=== PATIENT | female | born 1965 | race Caucasian/White ===

== ENCOUNTER 2019-12-18 10:30 | Inpatient (IN) | payer OTHER ==
--- NOTE | 2019-12-01 19:08 | NUR ---
BEDSIDE SHIFT REPORT GIVEN BY DAY RN. PT IS ALERT AND ORIENTED X3. RESPIRATIONS ARE EVEN AND UNLABORED. IV NOT WORKING WILL RESTART. PT REPORTS STOOLS ARE SOFT FORMED. ABDOMEN SOFT. BOWEL SOUNDS PRESENT.PT RESTING IN BED WATCHING TV. NO DISTRESS NOTED. AFEBRILE . PT HAS INTERMITENT COUGH- NONPRODUCTIVE. CALL LIGHT WITHIN REACH. BED LOCKED AND IN LOW POSITION .
[~2019-12-18] VITALS: Ht 167.6 cm; Wt 97.3 kg
--- OUTSIDE RECORDS SUMMARY | 2019-12-18 10:31 | XMS REPORT ---
Author Author [facility] Address Unknown Phone Unavailable Care Team Providers Care Wire Machine Operator Name Role Phone Unavailable Unavailable Payers Payer Name Policy Type Policy Number Effective Date Expiration Date Problems This patient has no known problems. Allergies, Adverse Reactions, Alerts This patient has no known allergies or adverse reactions. Medications This patient has no known medications. Results Test Description Test Time Test Comments Text Results Atomic Results Result Comments - XR KNEE 3 V BI 2019-12-02 15:26:00 FAX: Mekhi Sanabria MD [phone] [place]: St: REG FAX: Bridgette Engle [phone] Name: SUZETTE DEL CASTILLO [facility] : 1965 Age/S: 54/F [address] Unit #: [id number] Loc: [place] [address] Phys: Mekhi Villanueva MD Acct: [id number] Dis Date: Status: REG RCR PHONE #: [phone] Exam Date: 12/02/2019 1515 FAX #: Reason: pain EXAMS: CPT CODE: [id number] XR KNEE 3 [place] [address] HISTORY: Pain. COMPARISON: None available. 3 views of the right and left knee: Location: [facility]. No acute fracture or dislocation. Mild tricompartment joint space narrowing especially in the medial compartments bilaterally. No osteochondral lesions of the condyles. Articular surfaces remain well marginated. Mineralization and the soft tissues are normal. No joint fluid on either side. Quadriceps enthesophyte on the right. IMPRESSION: No acute fracture or dislocation. Mild tricompartment joint space narrowing especially in the medial compartments bilaterally. No joint fluid on either side. at 1526 Reported and signed by: Danish Worley M.D. CC: Mekhi Villanueva MD; Bridgette Ying MD Technologist: Grant ELIZABETH(R) Trnscrd Date/Time/By: 12/02/2019 (1526) : By: [email or web address] Orig Print D/T: S: 12/02/2019 (3592) PAGE 1 Signed Report
--- OUTSIDE RECORDS SUMMARY | 2019-12-18 10:31 | XMS REPORT | Encounter Summary ---
Author Organization Unknown Address [address] [place] [address] Phone [phone] Care Team Providers Care Nurse First Assist Name Role Phone Dr. Bridgette Ying 3 [phone] Reason for Visit hyperlipidemia; Bilateral knee pain/problem Instructions 1. Pain in left knee orthopedic referral - Please contact patient to schedule. Thank you! XR, knee, 3 view - Please contact patient to schedule. Thank you! naproxen 500 mg tablet 2. Intermittent palpitations cardiology referral - Please contact patient to schedule. Thank you! atenolol 25 mg tablet TSH, serum or plasma CBC w/ auto diff 3. Hyperlipidemia atorvastatin 10 mg tablet high cholesterol: care instructions lipid panel, serum CMP, serum or plasma 4. Body mass index 30+ - obesity body mass index: care instructions learning about healthy weight 5. Screening for malignant neoplasm of breast MAMMO, screening, digital, bilateral - Please contact patient to schedule. Thank you! 6. Gastroesophageal reflux disease 7. Migraine 8. Generalized anxiety disorder 9. Environmental allergy Discussion Note: None recorded. Plan of Care Reminders Provider Appointments Return to Office on or around 01/22/2020 Bridgette Ying MD Lab Lipid Panel, Serum 10/24/2019 [facility] - Laboratory CMP, Serum or Plasma 10/24/2019 [facility] - Laboratory TSH, Serum or Plasma 10/24/2019 [facility] - Laboratory CBC W/ Auto Diff 10/24/2019 [facility] - Laboratory Referral Cardiology Referral 10/24/2019 Lili Lan Jr DO Orthopedic Referral 10/24/2019 Wallace Dixon MD Procedures None recorded. Surgeries None recorded. Imaging MAMMO, Screening, Digital, Bilateral 10/24/2019 [facility] XR, Knee, 3 View 10/24/2019 [facility] Medications Name Start Date atenolol 25 mg tablet Take 1 tablet twice a day by oral route for 91 days. atorvastatin 10 mg tablet Take 1 tablet every day by oral route at bedtime for 90 days. Claritin 10 mg tablet Take 1 tablet every day by oral route. diazepam 5 mg tablet Take 1 tablet twice a day by oral route as needed. ibuprofen as needed naproxen 500 mg tablet Take 1 tablet twice a day by oral route as needed. take with food Prilosec OTC 20 mg tablet,delayed release Take 1 tablet every day by oral route. Tylenol as needed Medications Administered None recorded. Vitals Height Weight BMI Blood Pressure 5 ft 5.5 in 201 lbs 32.9 kg/m2 134/84 mm[Hg] Results Lab Results None recorded. Allergies Code Code System Name Reaction Severity Status Onset Sulfa (Sulfonamide Antibiotics) Hives Severe Active Problems Name Status Onset Date Source Hyperlipidemia Active 10/24/2019 Migraine Active 10/24/2019 Generalized Anxiety Disorder Active 10/25/2019 Gastroesophageal Reflux Disease Active 10/25/2019 Intermittent Palpitations Active 10/25/2019 Environmental Allergy Active 10/25/2019 Pain in Left Knee Active 10/25/2019 Procedures Date Name Performed by 10/01/1999 Hysterectomy (Partial) Information not available 10/01/1991 Tubal Ligation Information not available 10/01/1990 Caesarean Section Information not available 10/01/1989 Removal of Ectopic Fetus Information not available 10/01/1973 Appendectomy Information not available 10/24/2019 MAMMO, Screening, Digital, Bilateral [facility] [address], [place] [id number] (Work Place) 10/24/2019 XR, Knee, 3 View [facility] [address] [place] [address] (Work Place) Vaccine List None recorded. Social History Tobacco Smoking Status Never Smoker Past Encounters 10/24/2019 Pain in Left Knee; Intermittent Palpitations; Hyperlipidemia; Body Mass Index 30+ - Obesity; Screening for Malignant Neoplasm of Breast; Gastroesophageal Reflux Disease; Migraine; Generalized Anxiety Disorder; Environmental Allergy Bridgette Ying MD: [address] [place] [address], Ph. History of Present Illness Note:54yo female presents to become established in our office. New to [facility]. Regular PCP is no longer in her insurance network. Here today for evaluation of bilateral knee pain L>R since last July. Describes intermittent sharp, stabbing pain in left knee which can occur at rest or with activity. 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 Feels like both knees might buckle & amp; give way. No falls, but feels like knees are unstable.</div><div>Also needs medication refills of atorvastatin & atenolol.</div><div>PMHx:</div><div> Hyperlipidemia - on atorvastatin 10mg qhs since Jun 2019. Watching low choleste rol diet.</div><div>Premature heartbeats - was seen by geriatric nurse in past. Feels irregular heartbeat everyday. Has been on atenolol 25mg bid since 2007. Would like cardiology referral.</div><div>GERD -on daily OTC Prilosec</div><div> Vertigo/anxiety -has used diazepam in past.</div><div>Environmental allergies - followed by ENT, Dr Adriel Chavez for multiple allergies - was on allergy shots in past, now on Claritin. Mold, oak trees, dirt, dust, mesquite.</div><div >Migraines - was on topamax in past. Was seen by neurologist in [place]. Has not had migraine since January 2019 when she had Daith ear piercing on both ears.</div>< div>Last WWE/Pap in May 2019 - normal through [facility].</div><div>Last mammo in 2017 at [facility]</div> Review of Systems:ROS as noted in the HPI Review of Systems Comprehensive General Adult ROS Reported By: Patient Constitutional: Constitutional: no fever Eyes: Eyes: no vision change Cardiovascular: Cardiovascular: no chest pain, no known heart murmur, palpitations Respiratory: Respiratory: no cough, no wheezing, no shortness of breath Gastrointestinal: Gastrointestinal: no abdominal pain, dyspepsia, GERD Musculoskeletal: Musculoskeletal: arthralgias/joint pain Neurologic: Neurologic: no loss of consciousness, migraines Psychiatric: Psych: no depression, no alcohol abuse, no suicidal thoughts, anxiety Physical Exam General Adult Exam (Female) Reported By: Patient Constitutional: General Appearance: healthy-appearing, well-nourished, well-developed. Level of Distress: NAD. Ambulation: ambulating normally Psychiatric: Mental Status: active and alert, normal mood, normal affect Eyes: Lids and Conjunctivae: non-injected. Pupils: PERRLA. EOM: EOMI. Sclerae: non-icteric ENMT: Hearing: no hearing loss. Oropharynx: moist mucous membranes Neck: Thyroid: non-tender, no nodules Lungs: Respiratory effort: no dyspnea. Auscultation: breath sounds normal, good air movement, no wheezing, no rales/crackles Cardiovascular: Heart Auscultation: RRR, normal S1, normal S2, no murmurs. Neck vessels: no carotid bruits Abdomen: Bowel Sounds: normal. Inspection and Palpation: soft Musculoskeletal:: Joints, Bones, and Muscles: normal movement of all extremities, tenderness. Extremities: no edema Neurologic: Gait and Station: normal gait Skin: Inspection and palpation: no rash
[2019-12-18] MEDS ORDERED: ONDANSETRON HCL INJ 2MG/ML 2ML 2 MG/ML VIAL IV STA ×2 (10:41→13:50)
[2019-12-18] MEDS ORDERED: SODIUM CHLORIDE 0.9% 1000ML 1,000 ML IV STA (10:41)
[2019-12-18 11:09] LABS: BASOPHILS % 0.3 % (0.0-1.0); HEMATOCRIT 41.7 % (34.2-44.1); HEMOGLOBIN 13.7 g/dL (12.0-16.0); LYMPHOCYTES % 6.4 % (18.0-39.1); MEAN CORPUSCULAR HEMOGLOBIN 29.1 pg (28-32); MEAN CORPUSCULAR HGB CONC 32.9 g/dL (31-35); MEAN CORPUSCULAR VOLUME 88.5 fL (81-99); MONOCYTES # (AUTO) 0.5 (0.2-0.8); MONOCYTES % 3.4 % (4.4-11.3); NEUTROPHILS # (AUTO) 13.8 (2.1-6.9); NEUTROPHILS % 89.5 % (38.7-80.0); PLATELET COUNT 372 x10e3/uL (140-360); RED BLOOD COUNT 4.71 x10e6/uL (3.6-5.1); RED CELL DISTRIBUTION WIDTH 12.6 % (11.7-14.4)
[2019-12-18 11:18] LABS: STREPTOCOCCUS GRP A ANTIGEN NEGATIVE (NEGATIVE)
[2019-12-18 11:32] LABS: ALANINE AMINOTRANSFERASE 20 IU/L (0-55); ALBUMIN 3.9 g/dL (3.5-5.0); ALKALINE PHOSPHATASE 75 IU/L (40-150); BLOOD UREA NITROGEN 18 mg/dL (7-26); BUN/CREATININE RATIO 23 (6-25); CARBON DIOXIDE 26 mmol/L (22-29); CHLORIDE 101 mmol/L (98-107); CREATINE KINASE 58 IU/L (29-168); CREATININE, SERUM 0.79 mg/dL (0.57-1.11); EST GLOMERULAR FILTRATION RATE > 60 ML/MIN (60-); GLUCOSE 149 mg/dL (74-118); SODIUM 139 mmol/L (136-145)
[2019-12-18 11:43] LABS: INFLUENZAE A&B ANTIGEN (RAPID) NEGATIVE (NEGATIVE)
[2019-12-18 12:01] LABS: CLARITY,URINE CLOUDY (CLEAR); COLOR,URINE YELLOW (YELLOW); LEUKOCYTE ESTERASE ,URINE NEGATIVE (NEGATIVE); NITRITE,URINE NEGATIVE (NEGATIVE); PROTEIN,URINE DIPSTICK 2+ (NEGATIVE)
[2019-12-18 12:02] LABS: BILIRUBIN,URINE NEGATIVE (NEGATIVE); KETONES,URINE NEGATIVE (NEGATIVE); URINE UROBILINOGEN 0.2 mg/dL (0.2 - 1)
[2019-12-18 12:06] LABS: BACTERIA,URINE MANY /HPF; EPITHELIAL CELLS,URINE FEW /LPF
[2019-12-18] MEDS ORDERED: DIATRIZOATE MEGL/DIATRIZOA SOD 30 ML BTL PO ONE (12:12)
[2019-12-18] MEDS ORDERED: MORPHINE SULFATE INJ 4 MG/ML INJ 1ML IV STA (13:37)
--- NOTE | 2019-12-18 13:42 | Diagnostic Imaging Report ---
EXAM: CT Chest, Abdomen and Pelvis WITH intravenous contrast INDICATION: Elevated d-dimer, chest pain, abdominal pain, rectal bleeding COMPARISON: None. TECHNIQUE: The chest, abdomen and pelvis were scanned utilizing a multidetector helical scanner from the thoracic inlet to the pubic symphysis following administration of IV contrast. Coronal and sagittal reformations were obtained. PE Protocol was utilized to scan the thorax. Abdomen/pelvis scan was performed during portal venous phase. IV CONTRAST: 100cc Isovue 370 ORAL CONTRAST: Gastrografin COMPLICATIONS: None RADIATION DOSE: Total DLP: 1340 mGy*cm Dose modulation, iterative reconstruction, and/or weight based adjustment of the mA/kV was utilized to reduce the radiation dose to as low as reasonably achievable. FINDINGS: PULMONARY ARTERIES: No pulmonary embolism. The main pulmonary artery is not enlarged and measures up to 2.7 cm. No right heart strain. LINES/ TUBES: None. LUNGS AND AIRWAYS: The central airways are patent. No focal consolidation. No pulmonary edema. No suspicious pulmonary nodule. PLEURA: The pleural spaces are clear. HEART AND MEDIASTINUM: The thyroid gland is normal. No mediastinal, hilar or axillary lymphadenopathy. The heart is normal in size.. There is no pericardial effusion. HEPATOBILIARY: No focal hepatic lesions. No biliary ductal dilatation. The gallbladder appears unremarkable. SPLEEN: No splenomegaly. PANCREAS: No focal masses or ductal dilatation. ADRENALS: 1.5 cm left adrenal nodule and 1.2 cm right adrenal nodule, both of which are indeterminate based on density measurement (50HU). KIDNEYS/URETERS: No hydronephrosis, stones, or solid mass lesions. PELVIC ORGANS/BLADDER: Status post hysterectomy. PERITONEUM / RETROPERITONEUM: No free air or fluid. LYMPH NODES: No lymphadenopathy. VESSELS: Minimal atherosclerotic calcifications of the nonaneurysmal abdominal aorta and major branches. GI TRACT: Wall thickening and mild pericolonic fat stranding involving a segment of mid to distal transverse colon. No associated diverticulosis. BONES AND SOFT TISSUES: No acute osseous injury. No suspicious lytic or blastic lesions. IMPRESSION: No pulmonary embolism. Mid to distal transverse colon colitis. 1.5 cm left adrenal nodule and 1.2 cm right adrenal nodule are both indeterminate based on density but most likely represent benign adenomas. Follow-up adrenal mass protocol CT in 12 months is recommended to assess for stability. If the nodules are stable at that time, no further imaging follow-up is necessary. Signed by: Marisa Villegas MD on 12/18/2019 1:38 PM
[2019-12-18] MEDS ORDERED: MORPHINE SULFATE 2 MG/ML SYR 1ML IV PRN (14:30)
[2019-12-18] MEDS ORDERED: ATENOLOL25 MG PO (14:44)
[2019-12-18] MEDS ORDERED: ATORVASTATIN CA10 MG PO (14:44)
[2019-12-18] MEDS ORDERED: CIPROFLOXACIN 400 MG/D5W 200ML 200 ML IV SCH (15:00)
[2019-12-18] MEDS ORDERED: IOPAMIDOL 370 MG/ML 200 ML INFUS..BTL INJ ONE (15:22)
[2019-12-18] MEDS ORDERED: SODIUM CHLORIDE 0.9% 50ML 50 ML ONE (15:22)
--- NOTE | 2019-12-18 15:24 | NUR ---
RECEIVED REPORT FROM STRUCTURAL STEEL EQUIPMENT ERECTOR, PT COMING TO ROOM 211. AWAITING PT'S ARRIVAL.
[2019-12-18 15:36] VITALS: BP 170/80
--- NOTE | 2019-12-18 15:36 | NUR ---
PT ARRIVED TO ROOM 211 VIA STRETCHER. PT AWAKE, ALERT, NO SIGNS OF DISTRESS. IV INTACT AND PATENT. PT TRANSFERRED EASILY FROM STRETCHER TO BED WITH MINIMAL ASSISTANCE.
[2019-12-18 16:07] VITALS: BP 170/80
[2019-12-18 17:49] VITALS: BP 170/80
[2019-12-18] MEDS ORDERED: LORATADINE10 MG PO (18:02)
[2019-12-18] MEDS ORDERED: OMEPRAZOLE40 MG PO (18:02)
[2019-12-18] MEDS: SODIUM CHLORIDE 0.9% 1000ML 1,000 ML IV SCH (18:05)
[2019-12-18] MEDS: METRONIDAZOLE 500MG/NS 100ML 100 ML IV SCH (18:05)
--- NOTE | 2019-12-18 18:17 | NUR ---
PT'S BP NOTED; PT TOOK ONE OF HER ATENOLOL FROM HOME. AWAITING DR. CASTELLON TO SEE PATIENT FOR NEW ADMISSION TO RESTART HOME MEDS.
--- NOTE | 2019-12-18 19:05 | NUR ---
Bedside nursing report completed with morning nurse. Pt alert to name, lying in bed HOB 60 degrees. c/o lower abdominal pain that comes and goes. Call light within reach. Bed low and locked.
[2019-12-18] MEDS: MORPHINE SULFATE INJ 4 MG/ML INJ 1ML IV PRN (19:35)
[2019-12-18 20:00] VITALS: BP 143/71
[2019-12-18] MEDS: ONDANSETRON HCL INJ 2MG/ML 2ML 2 MG/ML VIAL IV PRN (20:45)
[2019-12-18] MEDS: CIPROFLOXACIN 400 MG/D5W 200ML 200 ML IV SCH (21:00)
[2019-12-18] MEDS ORDERED: BISACODYL 5 MG TAB EC PO ONE ×3 (21:45→22:45)
[2019-12-18 22:54] VITALS: BP 143/71
[2019-12-18] MEDS ORDERED: BISACODYL 5 MG TAB EC PO SCH (23:15)
[2019-12-18] MEDS: CITRATE OF MAGNESIA 300ML BOTTLE PO SCH (23:30)
[2019-12-18] MEDS ORDERED: CITRATE OF MAGNESIA 300ML BOTTLE PO SCH (23:30)
[2019-12-19] VITALS (9 sets, daily range): BP systolic 115–170; BP diastolic 63–90
[2019-12-19] MEDS: PANTOPRAZOLE 40 MG 10ML VIAL IV SCH ×3 (00:38→22:00)
[2019-12-19] MEDS: SODIUM CHLORIDE 0.9% 1000ML 1,000 ML IV SCH ×6 (03:30→22:19)
[2019-12-19] MEDS: ONDANSETRON HCL INJ 2MG/ML 2ML 2 MG/ML VIAL IV PRN ×3 (04:25→18:25)
[2019-12-19] MEDS: MORPHINE SULFATE INJ 4 MG/ML INJ 1ML IV PRN ×3 (04:25→18:24)
[2019-12-19] MEDS: METRONIDAZOLE 500MG/NS 100ML 100 ML IV SCH ×2 (04:39→15:43)
[2019-12-19] MEDS: CITRATE OF MAGNESIA 300ML BOTTLE PO SCH (04:40)
[2019-12-19 05:56] LABS: BASOPHILS % 0.2 % (0.0-1.0); EOSINOPHILS % 0.1 % (0.0-6.0); HEMATOCRIT 38.8 % (34.2-44.1); HEMOGLOBIN 12.7 g/dL (12.0-16.0); LYMPHOCYTES # (AUTO) 1.2 (1.0-3.2); LYMPHOCYTES % 6.8 % (18.0-39.1); MEAN CORPUSCULAR HEMOGLOBIN 29.3 pg (28-32); MEAN CORPUSCULAR HGB CONC 32.7 g/dL (31-35); MEAN CORPUSCULAR VOLUME 89.6 fL (81-99); MONOCYTES % 5.5 % (4.4-11.3); NEUTROPHILS # (AUTO) 15.6 (2.1-6.9); NEUTROPHILS % 86.2 % (38.7-80.0); PLATELET COUNT 331 x10e3/uL (140-360); RED BLOOD COUNT 4.33 x10e6/uL (3.6-5.1); RED CELL DISTRIBUTION WIDTH 12.8 % (11.7-14.4)
[2019-12-19 06:15] LABS: ALANINE AMINOTRANSFERASE 17 IU/L (0-55); ALBUMIN 3.5 g/dL (3.5-5.0); ALKALINE PHOSPHATASE 67 IU/L (40-150); ANION GAP 10.2 mmol/L (8-16); BLOOD UREA NITROGEN 8 mg/dL (7-26); BUN/CREATININE RATIO 11 (6-25); CALCIUM 9.1 mg/dL (8.4-10.2); CARBON DIOXIDE 27 mmol/L (22-29); CHLORIDE 103 mmol/L (98-107); EST GLOMERULAR FILTRATION RATE > 60 ML/MIN (60-); GLUCOSE 146 mg/dL (74-118); POTASSIUM 4.2 mmol/L (3.5-5.1); SODIUM 136 mmol/L (136-145)
--- NOTE | 2019-12-19 06:55 | NUR ---
Completed rounds with morning nurse. Pt lying in bed HOB 60 degrees. No acute distress noted.
--- NOTE | 2019-12-19 07:05 | NUR ---
RCD PT AT BED PT IS ALERT AND ORIENTED PT RESTING ON BED IV PATENT BY SALINE FLUSH PT NPO FOR PROCEDURE BED LOW AND LOCKED CALL LIGHT IN REACH
[2019-12-19] MEDS: CIPROFLOXACIN 400 MG/D5W 200ML 200 ML IV SCH ×2 (08:40→22:00)
[2019-12-19] MEDS ORDERED: GLUCAGON FOR INJ 1 MG VIAL ONE (11:11)
[2019-12-19] MEDS ORDERED: PROPOFOL IV EMULSION 10 MG/ML 50 ML VIAL ONE (11:11)
[2019-12-19] MEDS ORDERED: MIDAZOLAM HCL 2 MG/2 ML VIAL ONE (11:45)
--- NOTE | 2019-12-19 16:05 | NUR ---
PT WENT TO PROCEDURE IN SAFE CONDITION
--- NOTE | 2019-12-19 17:30 | NUR ---
PT BACK AFTER PROCEDURE PT IS ALERT AND ORIENTED VITALS CHECKED PT RESTING ON BED BED LOW AND LOCKED CALL LIGHT IN REACH
[2019-12-19] MEDS: VANCOMYCIN 250MG/5ML ORAL SOLN PO SCH ×2 (18:00→23:55)
--- NOTE | 2019-12-19 18:43 | NUR ---
PT RESTING ON BED BED SIDE REPORT GIVEN TO ONCOMING NURSE
--- NOTE | 2019-12-19 18:50 | NUR ---
BS ROUNDS COMPLETED WITH MORNING NURSE. PT ALERT AND ORIENTED TO NAME, LYING IN BED HOB 45 DEGREES. C/O MILD ABD PAIN, MEDICATED PREVIOUSLY. CALL LIGHT WITHIN REACH. WILL CONTINUE TO MONITOR.
[2019-12-20] VITALS (8 sets, daily range): BP systolic 91–133; BP diastolic 53–64
[2019-12-20] MEDS ORDERED: ACETAMINOPHEN325 M1 PO (00:32)
[2019-12-20] MEDS: ACETAMINOPHEN 325 MG TAB PO PRN (01:00)
[2019-12-20] MEDS: METRONIDAZOLE 500MG/NS 100ML 100 ML IV SCH ×2 (04:00→15:54)
[2019-12-20] MEDS: VANCOMYCIN 250MG/5ML ORAL SOLN PO SCH ×4 (06:00→23:45)
[2019-12-20 06:18] LABS: HEMATOCRIT 33.3 % (34.2-44.1); HEMOGLOBIN 10.6 g/dL (12.0-16.0); MEAN CORPUSCULAR HEMOGLOBIN 29.1 pg (28-32); MEAN CORPUSCULAR HGB CONC 31.8 g/dL (31-35); MEAN CORPUSCULAR VOLUME 91.5 fL (81-99); PLATELET COUNT 270 x10e3/uL (140-360); RED BLOOD COUNT 3.64 x10e6/uL (3.6-5.1); RED CELL DISTRIBUTION WIDTH 12.9 % (11.7-14.4)
[2019-12-20] MEDS: SODIUM CHLORIDE 0.9% 1000ML 1,000 ML IV SCH ×5 (06:19→22:19)
--- NOTE | 2019-12-20 07:10 | NUR ---
RCD PT AT BED PT IS ALERT AND ORIENTED PT RESTING ON BED IV PATENT BY SALINE FLUSH GETTING O2 3L BY NC BED LOW AND LOCKED CALL LIGHT IN REACH
[2019-12-20] MEDS: PANTOPRAZOLE SOD 40 MG TABEC PO SCH (07:30)
[2019-12-20] MEDS: ATORVASTATIN 10 MG TAB PO SCH (09:00)
[2019-12-20] MEDS: LORATADINE 10 MG TAB PO SCH (09:00)
[2019-12-20] MEDS: CIPROFLOXACIN 400 MG/D5W 200ML 200 ML IV SCH ×2 (09:00→21:16)
[2019-12-20] MEDS ORDERED: NON-FORMULARY MEDICATION (Atenolol 25 MG) PO SCH (09:00)
[2019-12-20] MEDS ORDERED: PANTOPRAZOLE SOD 40 MG TABEC PO SCH (09:00)
[2019-12-20] MEDS: ATENOLOL 50 MG TAB PO SCH ×2 (09:00→17:00)
[2019-12-20] MEDS: ONDANSETRON HCL INJ 2MG/ML 2ML 2 MG/ML VIAL IV PRN ×3 (09:25→22:49)
[2019-12-20] MEDS: MORPHINE SULFATE INJ 4 MG/ML INJ 1ML IV PRN ×3 (09:25→22:49)
--- NOTE | 2019-12-20 12:41 | Consultation ---
DATE OF CONSULTATION: 12/19/2019 REASON FOR CONSULTATION: Abdominal pain. HISTORY OF PRESENT ILLNESS: This is a very pleasant 54-year-old white female, comes to the emergency room with abdominal pain. She also has diarrhea. The patient is going for colonoscopy. The patient just received a dose of morphine apparently. So there is no family, she would like me to get more information. When she first came, her white count was 15.4, went up to 18.03, hemoglobin 13, and her platelet of 372. Sodium 139, potassium of 4.0, and creatinine 0.79. Liver enzyme normal limit. MEDICATION LIST: She is currently on metronidazole and Cipro. Her CT of abdomen and chest was done. No pulmonary embolism and showed colitis. PHYSICAL EXAMINATION: GENERAL: She is currently alert and oriented. Does not seem to be in acute distress. VITAL SIGNS: Stable, currently afebrile. Temperature is 96.3, heart rate 80. HEENT: She is not icteric. NECK: Supple. CHEST: Clear. HEART: S1 and S2. No S3, S4, or murmur. ABDOMEN: Soft. IMPRESSION: I think the patient has colitis. Agree with Cipro and Flagyl. GI workup is in progress. Recheck CBC. Recheck chem panel. IV fluids. Supportive care. Further recommendations to follow. MD NATHEN Taylor/ANÍBAL /[id number]
--- NOTE | 2019-12-20 17:03 | Progress Note ---
DATE: 12/20/2019 Internal Medicine Progress Note SUBJECTIVE: The patient is doing better. PHYSICAL EXAMINATION: HEART: Showed regular rhythm. Normal S1, S2 sound. LUNGS: Clear bilaterally. ABDOMEN: Soft. Minimal tenderness in the periumbilical right flank and left flank area. VITAL SIGNS: Blood pressure 115/63, temperature 36.1, 96.9 degrees Fahrenheit, heart rate 98 per minute, respiratory rate 20 per minute, oxygen saturation 98%. LABORATORY DATA: On the blood work, we have BMP; sodium 136, potassium 4.2, chloride 103, CO2 27, BUN 8, creatinine 0.70, glucose 146. On CBC, white blood count is elevated at 15.2, hemoglobin 10.6, hematocrit 33.3, and platelet count 270,000. IMPRESSION: 1. Gastric bleed. 2. Colitis. 3. Acute diarrhea. 4. Abdominal pain. 5. Acute anemia. 6. Leukocytosis. PLAN OF TREATMENT: Continue vancomycin, Flagyl and ciprofloxacin. Continue normal saline 125 mL an hour, Protonix 40 mg once a day, Zofran 4 mg q.4 hours as needed, atenolol 25 mg twice a day, vancomycin 500 mg p.o. q.6 hours, Lipitor 10 mg daily, Tylenol 325 mg q.6 hours, Claritin 10 mg daily, morphine 4 mg IV q.4 hours. We are waiting on the stool culture. Apparently, influenza A and B and streptococcus series are negative so far. MD MILLY Blankenship/ANÍBAL /[id number]
--- NOTE | 2019-12-20 18:48 | NUR ---
PT RESTING ON BED BED SIDE REPORT GIVEN TO ONCOMING NURSE
[2019-12-21] VITALS (8 sets, daily range): BP systolic 95–144; BP diastolic 52–70
[2019-12-21] MEDS: SODIUM CHLORIDE 0.9% 1000ML 1,000 ML IV SCH ×3 (03:30→22:19)
[2019-12-21] MEDS: METRONIDAZOLE 500MG/NS 100ML 100 ML IV SCH ×2 (03:30→16:00)
[2019-12-21 05:07] LABS: BASOPHILS # (AUTO) 0.1 (0.0-0.1); BASOPHILS % 0.9 % (0.0-1.0); EOSINOPHILS # (AUTO) 0.5 (0.0-0.4); EOSINOPHILS % 4.6 % (0.0-6.0); HEMATOCRIT 33.5 % (34.2-44.1); HEMOGLOBIN 10.4 g/dL (12.0-16.0); LYMPHOCYTES # (AUTO) 3.6 (1.0-3.2); LYMPHOCYTES % 33.1 % (18.0-39.1); MEAN CORPUSCULAR HEMOGLOBIN 28.4 pg (28-32); MEAN CORPUSCULAR VOLUME 91.5 fL (81-99); MONOCYTES # (AUTO) 0.7 (0.2-0.8); MONOCYTES % 6.7 % (4.4-11.3); NEUTROPHILS # (AUTO) 5.9 (2.1-6.9); NEUTROPHILS % 54.1 % (38.7-80.0); PLATELET COUNT 274 x10e3/uL (140-360); RED BLOOD COUNT 3.66 x10e6/uL (3.6-5.1)
[2019-12-21 05:30] LABS: % IRON SATURATION 19 % (15-50); IRON 46 ug/dL (50-170); TOTAL IRON BINDING CAPACITY 246 ug/dL (261-478); TRANSFERRIN 176 mg/dL (180-382)
[2019-12-21 05:55] LABS: FERRITIN 62.52 ng/mL (4.63-204.00)
[2019-12-21 06:23] LABS: FOLATE 8.8 ng/mL (7.0-15.4)
[2019-12-21] MEDS: VANCOMYCIN 250MG/5ML ORAL SOLN PO SCH ×4 (06:25→23:45)
[2019-12-21] MEDS: PANTOPRAZOLE SOD 40 MG TABEC PO SCH (07:30)
[2019-12-21] MEDS: LORATADINE 10 MG TAB PO SCH (09:00)
[2019-12-21] MEDS: ATORVASTATIN 10 MG TAB PO SCH (09:00)
[2019-12-21] MEDS: CIPROFLOXACIN 400 MG/D5W 200ML 200 ML IV SCH ×2 (09:00→21:00)
[2019-12-21] MEDS: ATENOLOL 50 MG TAB PO SCH ×2 (12:00→16:53)
--- NOTE | 2019-12-21 14:56 | Progress Note ---
DATE: 12/21/2019 Internal Medicine Progress Note SUBJECTIVE: The patient is with diarrhea. PHYSICAL EXAMINATION: HEART: Showed regular rhythm. Normal S1, S2 sound. LUNGS: Clear bilaterally. ABDOMEN: Soft, nontender. No distention. VITAL SIGNS: Blood pressure 139/70, temperature 97.0 degrees Fahrenheit, heart rate is 70 per minute, respiratory rate is 20 per minute, and oxygen saturation 98%. LABORATORY DATA: On CBC, white blood count 10.96, hemoglobin 10.4, hematocrit 33.5, and platelet count 274,000. On BMP; sodium 136, potassium 4.2, chloride 103, CO2 of 27. BUN 8, creatinine 0.70, glucose 146. Iron 46, TIBC 246, ferritin folic acid 8.8, alkaline phosphatase 75. . C. diff is negative. Influenza A and B negative. Group A Streptococcus screen negative. IMPRESSION: 1. gastric bleed. 2. Colitis. 3. Acute diarrhea. 4. Abdominal pain. 5. Acute anemia. 6. Leukocytosis. PLAN OF TREATMENT: Continue ciprofloxacin 400 mg twice a day, metronidazole 500 g IV q.12 hours. She is getting normal saline 125 mL an hour, Tylenol 325 mg q.6 hours as needed, atenolol 25 mg twice a day, Lipitor 10 mg daily, Claritin 10 mg daily, morphine 4 mg IV q.4 hours as needed, Zofran 4 mg IV q.4 hours as needed, Protonix 40 mg daily, vancomycin 500 mg p.o. q.6 hours. Colonoscopy has been done, she was found to have ulcerated distal, transverse, and proximal colon with pseudomembranes. Contact isolation as a precaution. MD MILLY Blankenship/ANÍBAL /[id number]
--- NOTE | 2019-12-21 18:24 | NUR ---
2 TIMES DIARRHOEA 2 TIMES DURING DAY SHIFT
--- NOTE | 2019-12-21 18:47 | NUR ---
PT RESTING ON BED BED SIDE REPORT GIVEN TO ONCOMING NURSE
[2019-12-21] MEDS: ONDANSETRON HCL INJ 2MG/ML 2ML 2 MG/ML VIAL IV PRN (21:15)
[2019-12-21] MEDS: MORPHINE SULFATE INJ 4 MG/ML INJ 1ML IV PRN (21:15)
[2019-12-22] VITALS (7 sets, daily range): BP systolic 109–134; BP diastolic 55–66
[2019-12-22] MEDS ORDERED: IRON SUCROSE 100 MG in SODIUM CHLORIDE 0.9% 100 ML 100 ML IV SCH ×2
[2019-12-22] MEDS ORDERED: DICYCLOMINE HCL 20 MG TAB PO ONE
[2019-12-22] MEDS: SODIUM CHLORIDE 0.9% 1000ML 1,000 ML IV SCH ×3 (03:53→22:19)
[2019-12-22] MEDS: METRONIDAZOLE 500MG/NS 100ML 100 ML IV SCH ×2 (03:53→16:09)
[2019-12-22 05:31] LABS: BASOPHILS # (AUTO) 0.1 (0.0-0.1); BASOPHILS % 0.8 % (0.0-1.0); EOSINOPHILS # (AUTO) 0.5 (0.0-0.4); EOSINOPHILS % 5.6 % (0.0-6.0); HEMATOCRIT 32.4 % (34.2-44.1); HEMOGLOBIN 10.1 g/dL (12.0-16.0); LYMPHOCYTES # (AUTO) 3.3 (1.0-3.2); LYMPHOCYTES % 36.4 % (18.0-39.1); MEAN CORPUSCULAR HEMOGLOBIN 28.4 pg (28-32); MEAN CORPUSCULAR HGB CONC 31.2 g/dL (31-35); MONOCYTES # (AUTO) 0.7 (0.2-0.8); MONOCYTES % 7.6 % (4.4-11.3); NEUTROPHILS # (AUTO) 4.5 (2.1-6.9); NEUTROPHILS % 49.3 % (38.7-80.0); PLATELET COUNT 273 x10e3/uL (140-360); RED BLOOD COUNT 3.56 x10e6/uL (3.6-5.1); RED CELL DISTRIBUTION WIDTH 12.7 % (11.7-14.4)
[2019-12-22] MEDS: ONDANSETRON HCL INJ 2MG/ML 2ML 2 MG/ML VIAL IV PRN (06:22)
[2019-12-22] MEDS: VANCOMYCIN 250MG/5ML ORAL SOLN PO SCH (06:22)
[2019-12-22] MEDS: MORPHINE SULFATE INJ 4 MG/ML INJ 1ML IV PRN ×2 (06:22→22:16)
[2019-12-22] MEDS: PANTOPRAZOLE SOD 40 MG TABEC PO SCH (08:32)
[2019-12-22] MEDS: LORATADINE 10 MG TAB PO SCH (08:32)
[2019-12-22] MEDS: IRON SUCROSE 100 MG in SODIUM CHLORIDE 0.9% 100 ML 100 ML IV SCH (08:32)
[2019-12-22] MEDS: ATORVASTATIN 10 MG TAB PO SCH (08:32)
[2019-12-22] MEDS: DICYCLOMINE HCL 20 MG TAB PO SCH ×3 (08:33→22:16)
[2019-12-22] MEDS: ATENOLOL 50 MG TAB PO SCH ×2 (08:33→16:10)
--- NOTE | 2019-12-22 09:14 | Progress Note ---
DATE: 12/22/2019 SUBJECTIVE: Ms. Milian is a 54-year-old female with history of anemia, hyperlipidemia, came to the emergency room complaining of abdominal pain, diarrhea with blood and vomiting. She had a colonoscopy done that shows ulcerated distal transverse and proximal colon. OBJECTIVE: GENERAL: Today, she is awake and alert. She is feeling a little better. She still has diarrhea. VITAL SIGNS: Temperature is 96.5, blood pressure is 124/62. HEART: Regular rate. LUNGS: Clear to auscultation. ABDOMEN: Soft. LABORATORY DATA: On the blood work, white count went down to , hemoglobin 10.1, hematocrit 32.4, potassium 4.2, creatinine 0.70. Liver enzymes normal. Iron is low. Stool lactoferrin positive. C. diff negative. Influenza negative. O and P cultures are pending. ASSESSMENT: 1. Gastrointestinal bleed. 2. Pseudomembranous colitis. 3. Acute diarrhea. 4. Abdominal pain. 5. Anemia. 6. Leukocytosis, resolving. PLAN: Plan at present time is to continue IV Cipro and metronidazole. Continue home medications. Continue Zofran p.r.n. for nausea. The patient is also on vancomycin 500 mg p.o. q.6 hours. So far, C. diff culture was negative. We are awaiting for other cultures. She will be discharged home soon if all the cultures come back negative and if stable. All this was discussed with the patient. All questions were answered to satisfaction. MD MARY Lange/ANÍBAL /[id number]
[2019-12-22] MEDS: CIPROFLOXACIN 400 MG/D5W 200ML 200 ML IV SCH ×2 (10:13→22:16)
[2019-12-23] VITALS (8 sets, daily range): BP systolic 106–135; BP diastolic 54–69
[2019-12-23] MEDS: METRONIDAZOLE 500MG/NS 100ML 100 ML IV SCH ×2 (05:08→15:41)
[2019-12-23] MEDS: SODIUM CHLORIDE 0.9% 1000ML 1,000 ML IV SCH ×3 (05:09→21:00)
[2019-12-23] MEDS: DICYCLOMINE HCL 20 MG TAB PO SCH ×3 (08:40→21:00)
[2019-12-23] MEDS: IRON SUCROSE 100 MG in SODIUM CHLORIDE 0.9% 100 ML 100 ML IV SCH (08:40)
[2019-12-23] MEDS: PANTOPRAZOLE SOD 40 MG TABEC PO SCH (08:40)
[2019-12-23] MEDS: LORATADINE 10 MG TAB PO SCH (08:40)
[2019-12-23] MEDS: ATENOLOL 50 MG TAB PO SCH ×2 (08:41→17:13)
[2019-12-23] MEDS: ATORVASTATIN 10 MG TAB PO SCH (08:41)
[2019-12-23] MEDS: MORPHINE SULFATE INJ 4 MG/ML INJ 1ML IV PRN ×2 (08:56→21:30)
--- NOTE | 2019-12-23 09:23 | Progress Note ---
DATE: 12/23/2019 SUBJECTIVE: Ms. Milian is a 54-year-old female with history of hyperlipidemia and arrhythmia, who came to the emergency room complaining of abdominal pain and diarrhea with blood and vomiting. She had a colonoscopy that showed ulcerated distal, transverse, and proximal area probably colitis. She is still have some diarrhea. We are repeating the stool for C. difficile, previous one was negative. She was restarted on vancomycin. OBJECTIVE: GENERAL: Today, she is awake and alert. She is feeling a little better. VITAL SIGNS: Temperature is 97.7, blood pressure 132/69. HEART: Regular rate. LUNGS: Clear to auscultation. ABDOMEN: Distended and soft. LABORATORY DATA: On the blood work, the white count is 9.12, hemoglobin is 10.1, hematocrit 32.4, and potassium 4.3, creatinine 0.70. Stool lactoferrin is positive. C. difficile came back negative, influenza negative. ASSESSMENT: 1. Gastrointestinal bleed. 2. Pseudomembranous colitis. 3. Acute diarrhea. 4. Abdominal pain. 5. Anemia. 6. Leukocytosis, improving. PLAN: At present time is to continue IV Cipro, metronidazole and p.o. vancomycin. Repeat C. difficile culture. Follow up other culture results, all this was discussed with Infectious Disease and with the patient. All questions were answered to satisfaction. MD MARY Lange/ANÍBAL /[id number]
[2019-12-23] MEDS: CIPROFLOXACIN 400 MG/D5W 200ML 200 ML IV SCH ×2 (10:04→21:00)
[2019-12-23] MEDS: VANCOMYCIN 250MG/5ML ORAL SOLN PO SCH ×2 (12:30→18:12)
[2019-12-24] VITALS (9 sets, daily range): BP systolic 107–141; BP diastolic 54–70
[2019-12-24] MEDS: MORPHINE SULFATE INJ 4 MG/ML INJ 1ML IV PRN ×2 (04:00→10:05)
[2019-12-24 05:29] LABS: BASOPHILS # (AUTO) 0.1 (0.0-0.1); BASOPHILS % 0.8 % (0.0-1.0); EOSINOPHILS # (AUTO) 0.5 (0.0-0.4); EOSINOPHILS % 5.4 % (0.0-6.0); HEMATOCRIT 33.4 % (34.2-44.1); HEMOGLOBIN 10.8 g/dL (12.0-16.0); LYMPHOCYTES # (AUTO) 2.5 (1.0-3.2); LYMPHOCYTES % 29.8 % (18.0-39.1); MEAN CORPUSCULAR HEMOGLOBIN 28.9 pg (28-32); MEAN CORPUSCULAR HGB CONC 32.3 g/dL (31-35); MEAN CORPUSCULAR VOLUME 89.3 fL (81-99); MONOCYTES # (AUTO) 0.7 (0.2-0.8); MONOCYTES % 8.7 % (4.4-11.3); NEUTROPHILS # (AUTO) 4.5 (2.1-6.9); NEUTROPHILS % 54.8 % (38.7-80.0); PLATELET COUNT 278 x10e3/uL (140-360); RED BLOOD COUNT 3.74 x10e6/uL (3.6-5.1); RED CELL DISTRIBUTION WIDTH 12.7 % (11.7-14.4)
[2019-12-24] MEDS: METRONIDAZOLE 500MG/NS 100ML 100 ML IV SCH ×2 (05:54→17:43)
[2019-12-24] MEDS: VANCOMYCIN 250MG/5ML ORAL SOLN PO SCH ×5 (05:54→23:52)
--- NOTE | 2019-12-24 07:00 | NUR ---
BEDSIDE SHIFT REPORT RECEIVED FROM CHEESE PACKER NURSE. PT DENIES NEEDS AT THIS TIME.
--- NOTE | 2019-12-24 08:44 | Progress Note ---
DATE: 12/24/2019 SUBJECTIVE: Ms. Milian is a 54-year-old female with history of hypertension, arrhythmia, came to the emergency room complaining of vomiting, abdominal pain and diarrhea with blood. She had a colonoscopy that showed ulcerated distal transverse and proximal area with probable colitis, diarrhea is subsiding with p.o. vancomycin. Stool guaiac for C. difficile was negative. OBJECTIVE: GENERAL: She is awake and alert. She is feeling better. She is tolerating food. VITAL SIGNS: Temperature is 98.2, blood pressure is 114/65. HEART: Regular rate. LUNGS: Clear to auscultation. ABDOMEN: Soft. LABORATORY DATA: On the blood work; potassium 4.2, creatinine is 0.70. White count 8.29, hemoglobin 10.8, hematocrit 33.4. O and P cultures are pending. ASSESSMENT: 1. Gastrointestinal bleed. 2. Pseudomembranous colitis. 3. Acute diarrhea. 4. Abdominal pain. 5. Anemia. 6. Leukocytosis, resolved. PLAN: At present time is to continue IV antibiotics and p.o. vancomycin. The patient can tolerate a diet and if the diarrhea subsides then she is going to be able to go home in the morning. All this was discussed with patient. All questions were answered to satisfaction. MD MARY Lange/ANÍBAL /[id number]
[2019-12-24] MEDS: DICYCLOMINE HCL 20 MG TAB PO SCH ×3 (10:06→21:22)
[2019-12-24] MEDS: PANTOPRAZOLE SOD 40 MG TABEC PO SCH (10:06)
[2019-12-24] MEDS: ATORVASTATIN 10 MG TAB PO SCH (10:06)
[2019-12-24] MEDS: LORATADINE 10 MG TAB PO SCH (10:06)
[2019-12-24] MEDS: SODIUM CHLORIDE 0.9% 1000ML 1,000 ML IV SCH ×3 (10:06→23:52)
[2019-12-24] MEDS: IRON SUCROSE 100 MG in SODIUM CHLORIDE 0.9% 100 ML 100 ML IV SCH (10:06)
[2019-12-24] MEDS: CIPROFLOXACIN 400 MG/D5W 200ML 200 ML IV SCH ×2 (10:06→22:41)
[2019-12-24] MEDS: ATENOLOL 50 MG TAB PO SCH ×2 (10:07→17:43)
[2019-12-24] MEDS ORDERED: ONDANSETRON HCL 4 MG ORAL DISINTEGRATING TAB PO PRN (16:00)
[2019-12-24] MEDS: ACETAMINOPHEN 325 MG TAB PO PRN (23:52)
[2019-12-25] MEDS: MORPHINE SULFATE INJ 4 MG/ML INJ 1ML IV PRN (02:26)
[2019-12-25] MEDS: METRONIDAZOLE 500MG/NS 100ML 100 ML IV SCH (04:25)
[2019-12-25 05:27] VITALS: BP 103/52
[2019-12-25] MEDS: VANCOMYCIN 250MG/5ML ORAL SOLN PO SCH ×2 (06:20→12:04)
[2019-12-25] MEDS: SODIUM CHLORIDE 0.9% 1000ML 1,000 ML IV SCH (06:20)
--- NOTE | 2019-12-25 07:00 | NUR ---
BEDSIDE SHIFT REPORT RECEIVED FROM CHURN DRILLER NURSE. PT DENIES NEEDS AT THIS TIME.
[2019-12-25 08:00] VITALS: BP 120/58
[2019-12-25 08:08] VITALS: BP 120/58
[2019-12-25] MEDS: DICYCLOMINE HCL 20 MG TAB PO SCH (08:23)
[2019-12-25] MEDS: ATORVASTATIN 10 MG TAB PO SCH (08:23)
[2019-12-25] MEDS: IRON SUCROSE 100 MG in SODIUM CHLORIDE 0.9% 100 ML 100 ML IV SCH (08:23)
[2019-12-25] MEDS: PANTOPRAZOLE SOD 40 MG TABEC PO SCH (08:23)
[2019-12-25] MEDS: LORATADINE 10 MG TAB PO SCH (08:23)
[2019-12-25] MEDS: ATENOLOL 50 MG TAB PO SCH (08:24)
--- NOTE | 2019-12-25 09:04 | Discharge Summary ---
HOSPITAL COURSE: Ms. Milian is a 54-year-old female with history of hypertension, anemia, came to the emergency room, complaining of abdominal pain, vomiting, and diarrhea. Had a colonoscopy done that showed ulcerated distal transverse and proximal colon with probably colitis. She did improve with p.o. vancomycin, so the plan is to discharge her home on vancomycin even though C. diff result came back negative. PHYSICAL EXAMINATION: GENERAL: She is awake and alert. She is tolerating food. VITAL SIGNS: Temperature is 98.1, blood pressure 120/58. HEART: Regular rate. LUNGS: Clear to auscultation. ABDOMEN: Soft. LABORATORY DATA: Blood work, white count is 8.29, hemoglobin 10.8, hematocrit 33.4. Potassium 4.2, creatinine is 0.70. Ova and parasites preliminary report has been negative, but some results are pending. DISCHARGE DIAGNOSES: 1. Lower gastrointestinal bleed. 2. Pseudomembranous colitis. 3. Diarrhea. 4. Abdominal pain. 5. Anemia. 6. Leukocytosis, resolved. PLAN: At present time is to discharge the patient home on a p.o. vancomycin. She needs follow up with her PCP in one week. She is to call me or come back to the emergency room if any recurrent problem. She is also to continue her home medications. All this was discussed with the patient. All questions were answered to satisfaction. Please see home medication reconciliation list. MD MARY Lange/ANÍBAL /[id number]
[2019-12-25] MEDS: CIPROFLOXACIN 400 MG/D5W 200ML 200 ML IV SCH (09:15)
--- NOTE | 2019-12-25 11:07 | NUR ---
PT CLEARED BY INFECTIOUS AND GASTRO TO DISCHARGE HOME TO FOLLOW UP. SCRIPTS WRITTEN.
[2019-12-25 12:25] VITALS: BP 101/65
--- NOTE | 2020-02-03 14:40 | Operative Report ---
DATE OF PROCEDURE: 12/19/2019 SURGEON: Michael Eaton MD PROCEDURE: Colonoscopy with biopsies. ADDITIONAL REFERRING PHYSICIAN: Dr. Katlyn Oconnell. INDICATIONS FOR COLONOSCOPY: Bloody diarrhea. MEDICATIONS: The patient was done under MAC, please see anesthesiologist's note. PROCEDURE IN DETAIL: With the patient in the left lateral decubitus position, the flexible fiberoptic Olympus colonoscope was inserted into the rectum with ease and advanced all the way to approximately the proximal transverse colon. It was not advanced any further due to severe mucosa ulcerations involving the distal transverse and the proximal descending colon. The scope was then withdrawn slowly and the mucosa overlying the distal transverse as well as the proximal two-thirds of the descending colon diffusely ulcerated with extensive pseudomembranes and multiple biopsies were obtained. The sigmoid and the rectum grossly appeared to be within normal limits. The scope was then retroflexed into the distal rectum and small internal hemorrhoids were noted, none of which was actively bleeding. The scope was then straightened out, it was subsequently withdrawn, and the patient tolerated the procedure well. IMPRESSION: 1. Colonoscopy to proximal transverse colon. 2. Ulcerated distal transverse and proximal descending colon with extensive pseudomembranes. 3. Internal hemorrhoids, none actively bleeding. PLAN: Follow up histology. Follow up stool studies. Initiate vancomycin 500 mg one p.o. q.6 hours. Michael Eaton MD [facility] [place] [place] /[id number] cc: MD Katlyn Baxter MD
--- NOTE | 2020-02-03 14:40 | Operative Report ---
DATE OF PROCEDURE: 12/19/2019 SURGEON: Michael Eaton MD PROCEDURE: Colonoscopy. INDICATIONS FOR COLONOSCOPY: Bloody diarrhea. MEDICATIONS: The patient was done under MAC, please see anesthesiologist's note. PROCEDURE IN DETAIL: With the patient in the left lateral decubitus position, a flexible fiberoptic Olympus colonoscope was inserted into the rectum with ease and advanced to approximately the proximal transverse colon. It was not advanced any further due to severe ulcerated mucosa distally. The scope was then withdrawn slowly and the mucosa overlying the mid to distal transverse colon and the proximal two-thirds of the descending colon was diffusely ulcerated and friable. Numerous pseudomembranes were noted. Biopsies were obtained. The mucosa overlying the sigmoid and the rectum appeared to be within normal limits. The scope was then retroflexed into the distal rectum and small internal hemorrhoids were noted, none of which was actively bleeding. The scope was then straightened out and it was subsequently withdrawn after securing an adequate stool specimen that was sent for the appropriate stool studies. The patient tolerated the procedure well. IMPRESSION: 1. Colonoscopy to proximal transverse colon. 2. Ulcerated distal transverse and proximal descending colon, findings suspicious for pseudomembranous colitis. 3. Internal hemorrhoids, none actively bleeding. PLAN: Follow up histology. Follow up stool studies. Initiate vancomycin 500 mg 1 p.o. q.6 hours. Michael Eaton MD [facility] [place] [place] /[id number] cc: MD Katlyn Baxter MD
--- NOTE | 2020-02-03 14:45 | Operative Report ---
DATE OF PROCEDURE: 12/19/2019 SURGEON: Michael Eaton MD PROCEDURE: Colonoscopy with biopsies. INDICATIONS FOR COLONOSCOPY: Bloody diarrhea. MEDICATIONS: The patient was done under MAC, please see anesthesiologist's note. PROCEDURE IN DETAIL: With the patient in left lateral decubitus position, a flexible fiberoptic Olympus colonoscope was inserted into the rectum with ease and advanced all the way to the proximal transverse colon. The scope was not advanced any further due to the fact that the distal transverse colon and the proximal descending colon were significantly ulcerated and for fear of inducing a perforation. The scope was then withdrawn slowly and the distal transverse colon as well as proximal descending colon were diffusely ulcerated. Multiple pseudomembranes were noted and biopsies were obtained. The sigmoid and rectum grossly appeared to be within normal limits. The scope was then retroflexed into the distal rectum. Small internal hemorrhoids were noted, none of which was actively bleeding. The scope was then straightened out, it was subsequently withdrawn and the patient tolerated procedure well. IMPRESSION: 1. Colonoscopy to the proximal transverse colon. 2. Ulcerated distal transverse and proximal descending colon, ? Pseudomembranous colitis. 3. Internal hemorrhoids, none actively bleeding. PLAN: Follow up histology. Follow up stool studies. Initiate vancomycin 500 mg one p.o. q.6 hours. The patient will need a followup colonoscopy in 2 to 3 months to re-evaluate colon, document healing, and to evaluate the right colon. Michael Eaton MD [facility] [place] /[id number] cc: Bridgette Ying MD
== END 2019-12-25 12:35 | disposition home or self-care (01) | DRG 372 ==
LOC: ER 10:30 → ERHOLD 14:19 → MED/SURG2 15:48 → OBSVTOIN 12-21 08:15
PROVIDERS: ADMIT Internal Medicine; ATTEND Internal Medicine
PROC: 0DBM8ZX Excision of Descending Colon, Via Natural or Artificial Opening Endoscopic, Diagnostic (ICD-10-PCS; principal; 2019-12-19 13:30)
DX: A04.72 Enterocolitis due to Clostridium difficile, not specified as recurrent (principal); K92.2 Gastrointestinal hemorrhage, unspecified; K63.3 Ulcer of intestine; D62 Acute posthemorrhagic anemia; E87.5 Hyperkalemia; E66.9 Obesity, unspecified; Z68.34 Body mass index [BMI] 34.0-34.9, adult; I49.9 Cardiac arrhythmia, unspecified
CPT/HCPCS: 36415; 45378; 71260; 74177; 80053; 81001; 82550; 82553; 82607; 82728; 82746; 83518; 83540; 83630; 83993; 84466; 84484; 85007; 85025; 85027; 85045; 85379; 87045; 87070; 87177; 87400; 87493; 88305; 96361; 99284; G0378; J1610; J1756; J2250; J2270; J2405; J7030; Q0162; Q9967